=== PATIENT | female | born 1970 | race Caucasian/White ===

== ENCOUNTER 2024-03-13 08:42 | Outpatient (REF) | payer BC, SELFPAY ==
--- NOTE | ~2024-03-13 | XR_ITS ---
EXAMINATION: XR SHOULDER, RIGHT CLINICAL INFORMATION: Reason for Exam M25.519 - Pain in unspecified shoulder COMPARISON: None TECHNIQUE: Three views of the shoulder. FINDINGS: No acute fracture or dislocation. Mild degenerative changes of the acromioclavicular joint with degenerative spurring. Soft tissues are unremarkable. 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
== END 2024-03-13 08:43 | disposition home or self-care (01) ==
LOC: HO.HOSX 08:42
PROVIDERS: Visit Provider Orthopaedic Surgery
DX: M25.311 Other instability, right shoulder (principal); M75.51 Bursitis of right shoulder; M25.511 Pain in right shoulder
CPT/HCPCS: 20610; 73030; J0665; J1100

== ENCOUNTER 2024-03-13 10:51 | Outpatient (AMB) | payer BC, SELFPAY ==
--- NOTE | 2024-03-13 11:07 | A.OFFVIS_ITS ---
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 Patient reports pain ongoing since about January, she has history of dislocation. She has pain at all times, worsening with lifting and reaching. 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 Denies numbness and tingling. No history of injections. Takes Tylenol and ibuprofen PRN. She hask done PT which was helpful . 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 She describes a long history of right shoulder pain. She describes having seen a prior doctor and was diagnosed with bursitis until the realize that she was chronically subluxing. He did physical therapy and this improved her symptoms until about 3 months ago when she started having pain again. She describes constant right shoulder pain. It is worse with reaching and overhead activity and does not let her sleep at night. She denies any history of dislocation. Physical Exam Vital Signs: BMI result Body Mass Index 32.3 Const General: cooperative, healthy appearing, no acute distress and well groomed Orientation/consciousness: oriented to person and oriented to place HEENT Head: Yes normal to inspection, Yes normocephalic and Yes atraumatic Eyes General: appearance normal, both eyes and all related structures Alignment and Position: alignment normal Conjunctivae: conjunctivae normal EOM: EOMs intact bilaterally Neck Neck: Yes normal visual inspection and Yes trachea midline Resp Other: No rerpiratory distress Effort & Inspection: normal respiratory effort and able to speak in complete sentences Cardio Other: Palpable radial pulse with no appreciable rythmic abnormalities GI Other: No abdominal distension Back/Spine/Pelvis Cervical Spine: normal cervical lordosis and cervical ROM normal Skin General skin exam: no rashes or lesions noted Neuro General: oriented to person, oriented to place and gait normal Extrem Other: Right shoulder full range of motion. She is somewhat limited however in internal rotation at L5 with a negative lift-off. She has a negative empty can. Positive Dent and Neer. Positive apprehension and relocation Office Procedures Joint Injection/Aspiration Joint Injection/Aspiration Details: Injected 1 mL of Decadron and 3 mL 1% lidocaine and 3 mL of 0.25% Marcaine. Site was prepped using aseptic technique. Patient tolerated the procedure well. Primary Site: right shoulder Approach Used: posterolateral Coding - Large joint Procedure code (CPT) selection complete Results Reviewed Results Reviewed: Mild AC joint arthritis otherwise unremarkable radiographs Assessment & Plan Assessment & Plan (1) Instability of right shoulder joint: Code(s): M25.311 - Other instability, right shoulder Category: Medical Plan: This is a 53-year-old woman with a history of right shoulder ?instability?. I do not have any evidence however that she is actually unstable. She has a mildly positive apprehension and relocation test and I do suspect that she may have some hyperlaxity of the shoulder joint. Her symptoms at this point however, appear to be more related to generalized shoulder dysfunction. I do recommend physical therapy and I injected her subacromial space. If physical therapy is not helpful or not sufficiently helpful she will return to see me and we can discuss further treatment options. (2) Bursitis of right shoulder: Code(s): M75.51 - Bursitis of right shoulder Category: Medical Plan: Orders: Orders XR shoulder RT min 2V Today M25.519 - Pain in unspecified shoulder Coding Level of Care Code New Pt Level 4 (71478) Diagnoses Instability of right shoulder joint M25.311 Bursitis of right shoulder M75.51 CPT Codes Coding - Large joint: 03982 - Large joint ([id number])
[2024-03-13 11:11] VITALS: BMI 32.3
== END 2024-03-13 11:53 | disposition home or self-care (01) ==
PROVIDERS: Visit Provider Orthopaedic Surgery
DX: M25.311 Other instability, right shoulder (principal); M75.51 Bursitis of right shoulder
CPT/HCPCS: 20610; 99203

== ENCOUNTER 2024-04-19 15:00 | Outpatient (RCR) | payer BC, SELFPAY ==
--- NOTE | 2024-03-30 15:31 | MHC.PT.EP ---
[facility] [place] Office [place] Office [place] Office [address] [phone] F: [phone] F: [phone] F: [phone] F: [phone] Physical Therapy Plan of Care Date of Evaluation: 03/29/24 Date of Surgery: n/a Diagnosis: Other instability, right shoulder Dynamic stabilization, periscapular stabilization, rotator cuff strengthening Assessment: Pt is a pleasant 53yo F who presents to PT with right shoulder pain. She reports history of subluxations but reports she went to PT in the past which helped. She presents to PT with current impairments in pain, decreased ROM, decreased strength, soft tissue restrictions, and impaired posture. She is limited functionally by reaching in directions, overhead ADLs, getting dressed, reaching behind back, and sleeping. She is a good candidate for skilled PT in order to address current impairments to facilitate return to PLOF. She is recommended to be seen 2x/week for 4 weeks and will be reassessed at that time Frequency and Duration: The patient will be seen 2x/week for 4 weeks Short Term Goals: Pt will be I with HEP to promote self management of symptoms Pt will improve right shoulder flexion by at least 10 degrees Residential Goals: Pt will achieve full ROM all planes of R shoulder to assist with lifting and reaching Pt will perform overhead ADLs with minimal to no compensation Pt will demonstrate improvements in SPADI as evidenced by statistically significant improvement in SPADI outcome measure Treatment Plan: Modalities to reduce pain, spasms and effusion. Manual therapy to restore motion and function. Therapeutic exercise to improve strength and flexibility. Neuromuscular re-education for posture and balance. Therapeutic activities to return to functional activities of daily living. Electronically signed by: Sammi Longoria, PT, DPT Please sign and return to therapist. Thank you for your referral.
--- NOTE | 2024-04-19 16:14 | MHC.PT.DC ---
[facility] [place] Office [place] Office [place] Office [address] Ashwin Magallon [address] [phone] F: [phone] F: [phone] F: [phone] F: [phone] Physical Therapy Discharge Report Diagnosis: Other instability, right shoulder Dynamic stabilization, periscapular stabilization, rotator cuff strengthening Date of Surgery: n/a Date of Evaluation: 03/29/24 Date of Discharge: 04/19/24 Treatments to Date: 8 Cancellations to Date: No Shows to Date: Discharge Status: Improved Function Independent with HEP Discharge Summary: Pt has made good progress since SOC. She has demonstrated improvements in strength and function and has had an overall decrease in pain. She improved her score on SPADI outcome measure from 65/130 on initial PT evaluation to 48/130 today. She does continue to have pain with stretching, lifting, and reaching behind her back. She is being D/C from skilled PT as she is going away for months. She is independent with her current HEP. I provided pt with printed, updated copy of HEP. She reports no further questions or concerns for PT at this time Electronically signed by: Sammi Longoria, PT, DPT Please sign and return to therapist. Thank you for your referral.
== END 2024-04-20 09:58 | disposition home or self-care (01) ==
LOC: HO.PT 15:00
PROVIDERS: PCP Nurse Practitioner Primary Care; Visit Provider Orthopaedic Surgery
DX: M25.311 Other instability, right shoulder (principal)
CPT/HCPCS: 97110; 97161

== ENCOUNTER 2024-04-21 10:04 | Outpatient (AMB) | payer BC, SELFPAY ==
[2024-04-21 10:05] VITALS: BMI 32.3
--- NOTE | 2024-04-21 10:05 | MHC.OFFVIS ---
Vital Signs 04/21/24 10:05 Height 5 ft 6 in Weight 200 lb BMI 32.3 Intake Visit Reasons: OV - Right Shoulder Instability/ Bursitis Intake Note: Ibis is a 53 year old right hand dominant female who presents today for a follow up of her right shoulder bursitis and instability. At her last visit she was referred to physical therapy and injected the Right Subacromial space. Relief with Physical therapy would determine further intervention. Patient reports that therapy went well, she has made some improvements. She currently compains of limited and painful limited ROM with above the head and behind the back motions. S Allergies pseudoephedrine [From Sudafed] Allergy (Verified 03/13/24 11:13) Hallucinations HPI HPI OV - Right Shoulder Instability/ Bursitis: Details: Ibis is a 53 year old right hand dominant female who presents today for a follow up of her right shoulder bursitis and instability. At her last visit she was referred to physical therapy and injected the Right Subacromial space. Patient reports that therapy went well, she has made improvements. She currently complains of minimal limited motion and mild pain with above the head and behind the back motions but it continues to improve and overall she feels good. Physical Exam Vital Signs: BMI result Body Mass Index 32.3 Const General: cooperative, healthy appearing, no acute distress and well groomed Orientation/consciousness: oriented to person and oriented to place HEENT Head: Yes normal to inspection, Yes normocephalic and Yes atraumatic Eyes General: appearance normal, both eyes and all related structures Alignment and Position: alignment normal Conjunctivae: conjunctivae normal EOM: EOMs intact bilaterally Neck Neck: Yes normal visual inspection and Yes trachea midline Resp Other: No rerpiratory distress Effort & Inspection: normal respiratory effort and able to speak in complete sentences Cardio Other: Palpable radial pulse with no appreciable rythmic abnormalities GI Other: No abdominal distension Back/Spine/Pelvis Cervical Spine: normal cervical lordosis and cervical ROM normal Skin General skin exam: no rashes or lesions noted Neuro General: oriented to person, oriented to place and gait normal Extrem Other: Right shoulder full range of motion. She is somewhat limited however in internal rotation at L5 with a negative lift-off. She has a negative empty can. Negative Dent and Neer. Assessment & Plan Assessment & Plan (1) Bursitis of right shoulder: Code(s): M75.51 - Bursitis of right shoulder Category: Medical Plan: Improving with PT. No additional intervention warranted. Coding Level of Care Code Est Pt Level 3 (23219) Diagnoses Bursitis of right shoulder M75.51
== END 2024-04-21 10:42 | disposition home or self-care (01) ==
PROVIDERS: Visit Provider Orthopaedic Surgery
DX: M75.51 Bursitis of right shoulder (principal)
CPT/HCPCS: 99213

== ENCOUNTER → 2024-04-21 10:04 | Outpatient (BNVA) | payer BC, SELFPAY | PROVIDERS: Visit Provider Orthopaedic Surgery ==